=== PATIENT | female | born 1960 | race Caucasian/White ===

== ENCOUNTER → 2016-08-28 | Outpatient (CLI) | payer MEDICARE, OTHER ==
--- NOTE | 2016-08-28 15:53 | XR ---
EXAMINATION TYPE: XR lumbosacral spine min 4V DATE OF EXAM: 08/28/2016 3:45 PM COMPARISON: NONE HISTORY: Tarsalgia TECHNIQUE: 5 view lumbar spine FINDINGS: Mild scoliosis is present. Facet degenerative changes in the lower lumbar spine. Disc heigh ts are preserved. Vertebral body heights are preserved. Some spondylosis is present. IMPRESSION: 1. Mild degenerative changes of the lumbar spine
--- NOTE | 2016-08-28 21:48 | US ---
EXAMINATION TYPE: US venous doppler duplex LE BI DATE OF EXAM: 08/28/2016 4:17 PM COMPARISON: NONE CLINICAL HISTORY: 55-year-old female R25.2 Leg cramping. Bilateral leg cramping, pain, no hx of bloo d clots or on blood thinners SIDE PERFORMED: Bilateral TECHNIQUE: The lower extremity deep venous system is examined utilizing real time linear array sonog iftikhar with graded compression, doppler sonography and color-flow sonography. FINDINGS: VESSELS IMAGED: External Iliac Vein (EIV) Common Femoral Vein Deep Femoral Vein Greater Saphenous Vein * Femoral Vein Popliteal Vein Small Saphenous Vein * Proximal Calf Veins (* superficial vessels) Right Leg: Appears negative for DVT Left Leg: Appears negative for DVT IMPRESSION: No evidence of DVT within the bilateral lower extremities imaged from the groin to the upper calves.
--- NOTE | 2016-08-29 08:29 | MM ---
Reason for exam: follow-up at short interval from prior study. History: Patient is postmenopausal. Family history of breast cancer in mother at age 72. Physical Findings: Nurse did not find any significant physical abnormalities on exam. MG 3D Diag Mammo W/Cad RT CC and MLO view(s) were taken of the right breast. There are scattered fibroglandular densities. No suspicious calcifications are seen. Stable intramuscular lymph node. Density not seen. These results were verbally communicated with the patient and result sheet given to the patient on 08/28/16. ASSESSMENT: Benign, BI-RAD 2 RECOMMENDATION: Routine screening mammogram of both breasts in 6 months. Back on schedule.
== END | disposition home or self-care (01) ==
LOC: RADMAMWWP 13:37
PROVIDERS: ATTEND Family Medicine
DX: R92.8 Other abnormal and inconclusive findings on diagnostic imaging of breast (principal); M47.816 Spondylosis without myelopathy or radiculopathy, lumbar region; R25.2 Cramp and spasm
CPT/HCPCS: 72110; 93970; G0206; G0279

== ENCOUNTER 2016-10-07 17:01 | Emergency (ER) | payer MEDICARE, OTHER ==
--- NOTE | 2016-10-07 17:42 | ED ---
Skin/Abscess/FB HPI - General Chief complaint: Skin/Abscess/Foreign Body Stated complaint: Swollen leg, poss bit by insect Time Seen by Provider: 10/07/16 17:17 Source: patient, RN notes reviewed Mode of arrival: wheelchair - History of Present Illness Initial comments: 56-year-old female presents to the emergency department chief complaint of swelling and redness to the right ankle. Patient states that she recently returned from a train ride to [place]. Patient states that she noticed some swelling and redness to the right ankle. Patient states it is tender to touch. Patient states she was concerned due to the symptoms so she thought that she should be seen. Patient states her spell nausea vomiting. Patient denies any fever or chills. Patient states she has not had any history of symptoms like this in the past. Patient denies any other concerns at this time. Patient denies any recent fever, chills, shortness of breath, chest pain, back pain, abdominal pain, nausea vomiting, numbness or tingling, dysuria or hematuria, constipation or diarrhea, headaches or visual changes, or any other current symptoms. - Related Data Home Medications Medication Instructions Recorded Confirmed Atenolol [Tenormin] 25 mg PO BID 03/01/15 03/03/15 Levothyroxine Sodium [Synthroid] 100 mcg PO QAM 03/01/15 03/01/15 Omeprazole [PriLOSEC] 20 mg PO AC-BID 03/01/15 03/01/15 metFORMIN HCL [Glucophage] 1,000 mg PO BID 03/01/15 03/01/15 Cyclobenzaprine [Flexeril] 5 mg PO TID PRN 10/07/16 10/07/16 Dapagliflozin Propanediol [Farxiga] 5 mg PO DAILY 10/07/16 10/07/16 glipiZIDE XL [Glucotrol Xl] 5 mg PO DAILY 10/07/16 10/07/16 traZODone HCL 150 mg PO HS 10/07/16 10/07/16 Previous Rx's Medication Instructions Recorded Cephalexin [Keflex] 500 mg PO Q6HR #40 cap 10/07/16 Allergies Allergy/AdvReac Type Severity Reaction Status Date / Time No Known Allergies Allergy Verified 10/07/16 17:43 Review of Systems ROS Statement: Those systems with pertinent positive or pertinent negative responses have been documented in the HPI. ROS Other: All systems not noted in ROS Statement are negative. Past Medical History Past Medical History: Diabetes Mellitus, GERD/Reflux, Hyperlipidemia, Hypertension Additional Past Medical History / Comment(s): HIATAL HERNIA,UMBILICAL HERNIA History of Any Multi-Drug Resistant Organisms: None Reported Past Surgical History: Cholecystectomy, Tubal Ligation Additional Past Surgical History / Comment(s): EGD,BLADDER SUSPENSION Past Anesthesia/Blood Transfusion Reactions: No Reported Reaction Smoking Status: Never smoker Past Alcohol Use History: Occasional Past Drug Use History: None Reported - Past Family History Mother Family Medical History: Cancer, Deep Vein Thrombosis (DVT) Additional Family Medical History / Comment(s): BREAST CA Father Family Medical History: Myocardial Infarction ([place]) General Exam - General Exam Comments Initial Comments: General: The patient is awake and alert, in no distress, and does not appear acutely ill. Neck: The neck is supple, there is no tenderness. Cardiovascular: There is a regular rate and rhythm. No murmur, rub or gallop is appreciated. Respiratory: Lungs are clear to auscultation, respirations are non-labored, breath sounds are equal. No wheezes, stridor, rales, or rhonchi. Musculoskeletal: Sensation intact with 2+ pulses throughout the right lower side. Full range of motion of right ankle and right knee. Patient does appear to have erythema over the medial malleolus. There is no calf tenderness. Full range motion of right knee with no bony tenderness noted. Neurological: CN II-XII intact, There are no obvious motor or sensory deficits. Coordination appears grossly intact. Speech is normal. Skin: Skin is warm and dry and no rashes or lesions are noted. Psychiatric: Normal mood and affect. Course Vital Signs 10/07/16 17:18 Temperature 97.4 F L Pulse Rate 103 H Respiratory 17 Rate Blood Pressure 145/88 O2 Sat by Pulse 96 Oximetry Medical Decision Making - Medical Decision Making 56-year-old female presents emergency Department chief complaint of right ankle pain redness and swelling. At this time patient's symptoms are consistent with a possible cellulitis. The family rule out ankle fracture as well as DVT. This time we will start the patient on Keflex for home. We discussed elevating the leg. Discussed return parameters and follow-up. We discussed outpatient family's questions. They state Robert they're in agreement with plan. They will be discharged. - Radiology Data Radiology results: report reviewed, image reviewed Disposition Clinical Impression: Cellulitis of right ankle Disposition: HOME SELF-CARE Condition: Stable Instructions: Cellulitis (ED) Additional Instructions: Please use medication as discussed. Please follow up with family doctor if symptoms have not improved over the next two days. Please return to the emergency room if your symptoms increase or worsen or for any other concerns. Prescriptions: Cephalexin [Keflex] 500 mg PO Q6HR #40 cap Referrals: Juan Sol MD [Primary Care Provider] - 1-2 days Time of Disposition: 18:35
--- NOTE | 2016-10-07 17:46 | XR ---
EXAMINATION TYPE: XR ankle complete RT DATE OF EXAM: 10/07/2016 COMPARISON: NONE HISTORY: Pain and redness TECHNIQUE: 3 views FINDINGS: There is soft tissue swelling around the ankle joint. There are large plantar and Achilles calcaneal spurs. I see no fracture nor dislocation. IMPRESSION: Calcaneal spurring. No fracture. Soft tissue swelling.
--- NOTE | 2016-10-07 18:24 | US ---
EXAMINATION TYPE: US venous doppler duplex LE RT DATE OF EXAM: 10/07/2016 6:07 PM COMPARISON: US 2017 CLINICAL HISTORY: Pain. EC patient with pain, redness and swelling right foot after 5 [address] SIDE PERFORMED: Right TECHNIQUE: The lower extremity deep venous system is examined utilizing real time linear array sonog iftikhar with graded compression, doppler sonography and color-flow sonography. VESSELS IMAGED: Common Femoral Vein Deep Femoral Vein Greater Saphenous Vein * Femoral Vein Popliteal Vein Small Saphenous Vein * Proximal Calf Veins (* superficial vessels) Right Leg: Negative for DVT; edema channels are noted medial right ankle at area of swelling, pain a nd redness. IMPRESSION: No evidence of deep venous thrombosis. Soft tissue edema is noted.
[2016-10-07] MEDS ORDERED: ceFAZolin 1,000 MG VIAL IM STA (18:38)
[2016-10-07 18:53] VITALS: BP 168/82; PULSE 92; RESP 18; TEMP 97.7
== END 2016-10-07 19:06 | disposition home or self-care (01) ==
LOC: EC 17:01
DX: L03.115 Cellulitis of right lower limb (principal); R60.0 Localized edema; R11.2 Nausea with vomiting, unspecified; I10 Essential (primary) hypertension; E11.9 Type 2 diabetes mellitus without complications; K21.9 Gastro-esophageal reflux disease without esophagitis; Z79.84 Long term (current) use of oral hypoglycemic drugs; Z79.899 Other long term (current) drug therapy
CPT/HCPCS: 99284; 96372; 73610; 93971; J0690

== ENCOUNTER 2017-05-14 13:16 | Emergency (ER) | payer MEDICARE, OTHER ==
[2017-05-14 13:21] VITALS: BP 137/80; PULSE 77; RESP 20; TEMP 98.1
--- NOTE | 2017-05-14 13:51 | ED ---
General Adult HPI - General Chief complaint: Back Pain/Injury Stated complaint: back pain Time Seen by Provider: 05/14/17 13:46 Source: patient, RN notes reviewed Mode of arrival: ambulatory Limitations: no limitations - History of Present Illness Initial comments: 56-year-old female presents to the emergency department with a chief complaint of right-sided sciatica type pain. She states she has a history of sciatica. She states it flared up about a week ago. Her right buttock and will shoot down her right. Certain movement seems to make it worse. She denies a loss by bladder functioning saddle anesthesia. She states she also has a history of these is that she has not. She states she's had a lot of itching. denies Discharge. She denies any fever chills with this. She denies any changes in urination. Patient was concerned due to the flareup of sciatica as well as she thought that her increased infection should be assessed. Patient states is not currently having any other symptoms at this time.Patient denies any recent fever , chills, shortness of breath, chest pain, back pain, abdominal pain, nausea vomiting, numbness or tingling, dysuria or hematuria, constipation or diarrhea, headaches or visual changes, or any other current symptoms. - Related Data Home Medications Medication Instructions Recorded Confirmed Atenolol [Tenormin] 25 mg PO BID 03/01/15 10/07/16 Levothyroxine Sodium [Synthroid] 100 mcg PO QAM 03/01/15 10/07/16 Omeprazole [PriLOSEC] 20 mg PO DAILY 03/01/15 10/07/16 metFORMIN HCL [Glucophage] 1,000 mg PO BID 03/01/15 10/07/16 Cyclobenzaprine [Flexeril] 5 mg PO TID PRN 10/07/16 10/07/16 Dapagliflozin Propanediol [Farxiga] 5 mg PO DAILY 10/07/16 10/07/16 glipiZIDE XL [Glucotrol Xl] 5 mg PO DAILY 10/07/16 10/07/16 traZODone HCL 150 mg PO HS 10/07/16 10/07/16 Previous Rx's Medication Instructions Recorded Cephalexin [Keflex] 500 mg PO Q6HR #40 cap 10/07/16 Fluconazole [Diflucan] 150 mg PO ONCE #2 tab 05/14/17 predniSONE 50 mg PO DAILY #5 tab 05/14/17 Allergies Allergy/AdvReac Type Severity Reaction Status Date / Time No Known Allergies Allergy Verified 05/14/17 13:21 Review of Systems ROS Statement: Those systems with pertinent positive or pertinent negative responses have been documented in the HPI. ROS Other: All systems not noted in ROS Statement are negative. Past Medical History Past Medical History: Diabetes Mellitus, GERD/Reflux, Hyperlipidemia, Hypertension Additional Past Medical History / Comment(s): HIATAL HERNIA,UMBILICAL HERNIA History of Any Multi-Drug Resistant Organisms: None Reported Past Surgical History: Cholecystectomy, Tubal Ligation Additional Past Surgical History / Comment(s): EGD,BLADDER SUSPENSION Past Anesthesia/Blood Transfusion Reactions: No Reported Reaction Past Psychological History: No Psychological Hx Reported Smoking Status: Never smoker Past Alcohol Use History: Occasional Past Drug Use History: None Reported - Past Family History Mother Family Medical History: Cancer, Deep Vein Thrombosis (DVT) Additional Family Medical History / Comment(s): BREAST CA Father Family Medical History: Myocardial Infarction ([place]) General Exam Limitations: no limitations General appearance: alert, in no apparent distress ENT exam: Present: normal exam, mucous membranes moist Neck exam: Present: normal inspection. Absent: tenderness, meningismus, lymphadenopathy Respiratory exam: Present: normal lung sounds bilaterally. Absent: respiratory distress, wheezes, rales, rhonchi, stridor Cardiovascular Exam: Present: regular rate, normal rhythm, normal heart sounds. Absent: systolic murmur, diastolic murmur, rubs, gallop, clicks External exam: Present: erythema, other (no discharge noted) Back exam: Present: normal inspection, full ROM, paraspinal tenderness ( right sided), other (Positive straight leg raise to the right). Absent: tenderness, rash noted Neurological exam: Present: alert, oriented X3 Psychiatric exam: Present: normal affect, normal mood Skin exam: Present: warm, dry, intact, normal color. Absent: rash Course Vital Signs 05/14/17 13:19 Temperature 98.1 F Pulse Rate 77 Respiratory 20 Rate Blood Pressure 137/80 O2 Sat by Pulse 96 Oximetry Medical Decision Making - Medical Decision Making 56 shows female presents to emergency department with a chief complaint of what appears to be a sciatica as well as concern for yeast infection. This time there was some erythema around the area. Patient's urinalysis is otherwise benign. We will send for urine culture. We'll give her a dose of fluconazole for today 36 hours later as well as we we'll start her on steroids for her back pain. We did discuss the importance of keeping it tight glucose control with steroids we did discuss return parameters and follow-up and all questions. Patient stated that she understood and she is here this plan. She'll be discharged. - Lab Data Lab Results 05/14/17 Range/Units 13:52 Urine Color Yellow Urine Appearance Clear (Clear) Urine pH 5.0 (5.0-8.0) Ur Specific Micro 1.026 (1.001-1.035) Urine Protein Negative (Negative) Urine Glucose (UA) 4+ H (Negative) Urine Ketones Negative (Negative) Urine Blood Negative (Negative) Urine Nitrite Negative (Negative) Urine Bilirubin Negative (Negative) Urine Urobilinogen <2.0 (<2.0) mg/dL Ur Leukocyte Esterase Small H (Negative) Urine RBC 1 (0-5) /hpf Urine WBC 1 (0-5) /hpf Ur Squamous Epith Cells 1 (0-4) /hpf Urine Mucus Rare H (None) /hpf - Radiology Data Radiology results: report reviewed, image reviewed Disposition Clinical Impression: Candidiasis of vulva and vagina, Right sided sciatica Disposition: HOME SELF-CARE Condition: Stable Instructions: Vulvovaginal Candidiasis (ED), Sciatica (ED) Additional Instructions: Please use medication as discussed. Please follow up with family doctor if symptoms have not improved over the next two days. Please return to the emergency room if your symptoms increase or worsen or for any other concerns. Prescriptions: Fluconazole [Diflucan] 150 mg PO ONCE #2 tab predniSONE 50 mg PO DAILY #5 tab Referrals: Juan Sol MD [Primary Care Provider] - 1-2 days Time of Disposition: 14:47
--- NOTE | 2017-05-14 14:22 | XR ---
EXAMINATION TYPE: XR lumbar spine 2 or 3V DATE OF EXAM: 05/14/2017 CLINICAL HISTORY: pain TECHNIQUE: Three views of the lumbar spine are submitted. COMPARISON: None. FINDINGS: There are 5 lumbar type vertebral bodies identified. The lumbar spine shows satisfactory alignment w ithout evidence of acute fracture or dislocation. Vertebral body heights are within normal limits. Moderate multilevel disc space narrowing and spondylosis. Mild curvature seen convex to the left. Th e overlying soft tissue appears unremarkable. IMPRESSION: No acute fracture or dislocation is seen in the lumbar spine. ICD 10 NO FRACTURE, INITIAL EVALUATION
[2017-05-14 14:43] LABS: Appearance,Urine Clear (Clear); Bilirubin,Urine Negative (Negative); Blood,Urine Negative (Negative); Color,Urine Yellow; Glucose,Urine (UA) 4+ (Negative); Ketones,Urine Negative (Negative); Leukocyte Esterase,Urine Small (Negative); Mucus,Urine Rare /hpf; Nitrite,Urine Negative (Negative); Protein,Urine Negative (Negative); RBC,Urine 1 /hpf (0-5); Specific Gravity,Urine 1.026 (1.001-1.035); Squamous Epithelial Cell,Urine 1 /hpf (0-4); Urobilinogen,Urine <2.0 mg/dL (<2.0); WBC,Urine 1 /hpf (0-5)
== END 2017-05-14 14:55 | disposition home or self-care (01) ==
LOC: EC 13:16
DX: M54.31 Sciatica, right side (principal); B37.3 Candidiasis of vulva and vagina; K21.9 Gastro-esophageal reflux disease without esophagitis; E78.5 Hyperlipidemia, unspecified; I10 Essential (primary) hypertension; E11.9 Type 2 diabetes mellitus without complications; Z79.84 Long term (current) use of oral hypoglycemic drugs; Z79.899 Other long term (current) drug therapy
CPT/HCPCS: 72100; 81001; 99283

== ENCOUNTER → 2018-05-20 | Outpatient (CLI) | payer MEDICARE, OTHER ==
--- NOTE | 2018-05-23 13:15 | MM ---
Reason for exam: screening (asymptomatic). Last mammogram was performed 1 year and 1 month ago. History: Patient is postmenopausal. Family history of breast cancer in mother at age 72. MG 3D Screening Mammo W/Cad Bilateral CC and MLO view(s) were taken. Prior study comparison: April 21, 2017, bilateral MG 3d screening mammo w/cad. August 28, 2016, right breast MG 3d diag mammo w/cad RT. There are scattered fibroglandular densities. There is chronic nodularity in the right breast. No significant changes when compared with prior studies. ASSESSMENT: Negative, BI-RAD 1 RECOMMENDATION: Routine screening mammogram of both breasts in 1 year.
== END | disposition home or self-care (01) ==
LOC: RADMAMWWP 10:38
PROVIDERS: ATTEND Family Medicine
DX: Z12.31 Encounter for screening mammogram for malignant neoplasm of breast (principal)
CPT/HCPCS: 77063; 77067

== ENCOUNTER → 2019-07-16 | Outpatient (CLI) | payer MEDICARE, OTHER ==
--- NOTE | 2019-07-19 09:51 | MM ---
Reason for exam: screening (asymptomatic). Last mammogram was performed 1 year and 2 months ago. History: Patient is postmenopausal. Family history of breast cancer in mother at age 72. Physical Findings: A clinical breast exam by your physician is recommended on an annual basis and results should be correlated with mammographic findings. MG 3D Screening Mammo W/Cad Bilateral CC and MLO view(s) were taken. Prior study comparison: May 20, 2018, bilateral MG 3d screening mammo w/cad. April 21, 2017, bilateral MG 3d screening mammo w/cad. There are scattered fibroglandular densities. No significant changes when compared with prior studies. ASSESSMENT: Benign, BI-RAD 2 RECOMMENDATION: Routine screening mammogram of both breasts in 1 year.
== END | disposition home or self-care (01) ==
LOC: RADMAMWWP 15:12
PROVIDERS: ATTEND Obstetrics & Gynecology
DX: Z12.31 Encounter for screening mammogram for malignant neoplasm of breast (principal)
CPT/HCPCS: 77063; 77067

== ENCOUNTER → 2020-09-01 | Outpatient (CLI) | payer MEDICARE, OTHER ==
--- NOTE | 2020-09-04 11:45 | MM ---
Reason for exam: screening (asymptomatic). Last mammogram was performed 1 year and 2 months ago. History: Patient is postmenopausal. Family history of breast cancer in mother at age 72. Physical Findings: A clinical breast exam by your physician is recommended on an annual basis and results should be correlated with mammographic findings. MG 3D Screening Mammo W/Cad Bilateral CC and MLO view(s) were taken. XCCL view(s) were taken of the right breast. Prior study comparison: July 16, 2019, bilateral MG 3d screening mammo w/cad. May 20, 2018, bilateral MG 3d screening mammo w/cad. There are scattered fibroglandular densities. There are benign appearing round calcifications bilaterally. There is chronic nodularity bilaterally. There is no discrete abnormality. ASSESSMENT: Benign, BI-RAD 2 RECOMMENDATION: Routine screening mammogram of both breasts in 1 year.
== END | disposition home or self-care (01) ==
LOC: RADMAMWWP 13:10
PROVIDERS: ATTEND Family Medicine
DX: Z12.31 Encounter for screening mammogram for malignant neoplasm of breast (principal); Z80.3 Family history of malignant neoplasm of breast; Z78.0 Asymptomatic menopausal state
CPT/HCPCS: 77063; 77067

== ENCOUNTER 2021-07-20 16:33 | Observation (INO) | payer MEDICARE, OTHER ==
[2021-07-20 18:16] LABS: Basophils % (A) 1 %; Eosinophils # (A) 0.2 k/uL (0-0.7); Eosinophils % (A) 3 %; HCT 42.5 % (34.0-46.0); HGB 14.4 gm/dL (11.4-16.0); Lymphocytes # (A) 2.2 k/uL (1.0-4.8); Lymphocytes % (A) 30 %; MCH 29.2 pg (25.0-35.0); MCHC 33.9 g/dL (31.0-37.0); MCV 86.1 fL (80.0-100.0); Mean Platelet Volume 7.8; Monocytes # (A) 0.3 k/uL (0-1.0); Monocytes % (A) 4 %; Neutrophils # (A) 4.4 k/uL (1.3-7.7); Neutrophils % (A) 60 %; Platelet Count 247 k/uL (150-450); RBC 4.94 m/uL (3.80-5.40); RDW 13.4 % (11.5-15.5); WBC 7.4 k/uL (3.8-10.6)
[2021-07-20 18:24] LABS: African American GFR (CKD) >90 (>60 ml/min/1.73 sqM); Anion Gap 9 mmol/L; Blood Urea Nitrogen 17 mg/dL (7-17); Carbon Dioxide 23 mmol/L (22-30); Chloride 104 mmol/L (98-107); Glucose 254 mg/dL (74-99); Potassium 4.1 mmol/L (3.5-5.1); Sodium 136 mmol/L (137-145)
[2021-07-20 18:25] LABS: ALT 36 U/L (4-34); AST 33 U/L (14-36); Alkaline Phosphatase 82 U/L (38-126); Calcium 9.2 mg/dL (8.4-10.2); Lipase 300 U/L (23-300); Non-African American GFR(CKD) >90 (>60 ml/min/1.73 sqM); Partial Thromboplastin Time 22.6 sec (22.0-30.0); Prothrombin Time 10.4 sec (9.0-12.0); Total Bilirubin 0.5 mg/dL (0.2-1.3); Total Protein 6.9 g/dL (6.3-8.2)
--- NOTE | 2021-07-20 18:38 | XR ---
EXAMINATION TYPE: XR chest 2V DATE OF EXAM: 07/20/2021 COMPARISON: NONE HISTORY: Chest pain TECHNIQUE: 2 views FINDINGS: There is no heart failure nor confluent pneumonic infiltrate. Costophrenic angles are clear . There are chest leads. The bony thorax is intact. IMPRESSION: No active cardiopulmonary disease. Normal heart.
--- NOTE | 2021-07-20 18:53 | ED ---
General Adult HPI - General Chief complaint: Dizziness Stated complaint: Chest pains Time Seen by Provider: 07/20/21 17:37 Source: patient, RN notes reviewed, old records reviewed Mode of arrival: wheelchair Limitations: no limitations - History of Present Illness Initial comments: 60-year-old female presenting with chief complaint of dizziness, chest d iscomfort, and bilateral upper shoulder pain. Symptoms have been present for approximately one week. She has history of hypertension and diabetes. No previous history of coronary artery disease or myocardial infarction. She denies focal numbness or weakness. She states she has been unsteady on her feet over the past one week as well. - Related Data Home Medications Medication Instructions Recorded Confirmed Omeprazole [PriLOSEC] 20 mg PO DAILY 03/01/15 07/20/21 ALPRAZolam [Xanax] 0.25 mg PO DAILY PRN 07/20/21 07/20/21 Empagliflozin [Jardiance] 10 mg PO DAILY 07/20/21 07/20/21 Ergocalciferol [Vitamin D2 (1250 1,250 mcg PO FR 07/20/21 07/20/21 Mcg = 19909 Iu)] Fenofibrate,Micronized 134 mg PO DAILY 07/20/21 07/20/21 [Fenofibrate] Levothyroxine Sodium 112 mcg PO DAILY 07/20/21 07/20/21 Liraglutide [Victoza 2-Gen] 1.2 mg SQ DAILY 07/20/21 07/20/21 Metoprolol Succinate (ER) [Toprol 100 mg PO DAILY 07/20/21 07/20/21 Xl] Rosuvastatin Calcium [Crestor] 40 mg PO DAILY 07/20/21 07/20/21 Venlafaxine HCl [Effexor XR] 75 mg PO DAILY 07/20/21 07/20/21 glipiZIDE XL [Glucotrol Xl] 10 mg PO DAILY 07/20/21 07/20/21 sitaGLIPtin [Januvia] 100 mg PO DAILY 07/20/21 07/20/21 traZODone HCL [Desyrel] 100 mg PO HS 07/20/21 07/20/21 Allergies Allergy/AdvReac Type Severity Reaction Status Date / Time lisinopril AdvReac Cough Verified 07/20/21 18:32 Review of Systems ROS Statement: Those systems with pertinent positive or pertinent negative responses have been documented in the HPI. ROS Other: All systems not noted in ROS Statement are negative. Past Medical History Past Medical History: Diabetes Mellitus, GERD/Reflux, Hyperlipidemia, Hypertension Additional Past Medical History / Comment(s): HIATAL HERNIA,UMBILICAL HERNIA History of Any Multi-Drug Resistant Organisms: None Reported Past Surgical History: Cholecystectomy, Tubal Ligation Additional Past Surgical History / Comment(s): EGD,BLADDER SUSPENSION Past Anesthesia/Blood Transfusion Reactions: No Reported Reaction Past Psychological History: No Psychological Hx Reported Smoking Status: Never smoker Past Alcohol Use History: Occasional Past Drug Use History: None Reported - Past Family History Mother Family Medical History: Cancer, Deep Vein Thrombosis (DVT) Additional Family Medical History / Comment(s): BREAST CA Father Family Medical History: Myocardial Infarction ([place]) General Exam Limitations: no limitations General appearance: alert, in no apparent distress Head exam: Present: atraumatic, normocephalic Eye exam: Present: normal appearance, PERRL ENT exam: Present: normal exam Neck exam: Present: normal inspection. Absent: tenderness, meningismus Respiratory exam: Present: normal lung sounds bilaterally. Absent: respiratory distress, wheezes Cardiovascular Exam: Present: regular rate, normal rhythm GI/Abdominal exam: Present: soft. Absent: distended, tenderness, guarding Extremities exam: Present: normal inspection, normal capillary refill. Absent: pedal edema, calf tenderness Neurological exam: Present: alert, oriented X3, CN II-XII intact. Absent: motor sensory deficit Psychiatric exam: Present: normal affect, normal mood Skin exam: Present: warm, dry, intact. Absent: cyanosis, diaphoretic Course Vital Signs 07/20/21 07/20/21 16:37 17:43 Temperature 97.8 F 98.1 F Pulse Rate 85 77 Respiratory 18 18 Rate Blood Pressure 176/93 187/98 O2 Sat by Pulse 96 96 Oximetry EKG Findings - EKG Comments: EKG Findings:: Initial EKG obtained at 1707 sinus rhythm with a rate of 79, [place] interval 170, QRS duration 113, QTC 4:30, there is [place] depression and Q waves in the inferior leads as well as the lateral precordial leads. Repeat EKG obtained at 1752 is unchanged. Rate of 74, NY interval 164, QRS duration 110, QTC 427. Medical Decision Making - Medical Decision Making 60-year-old female presenting with multiple complaints, chest pain which radiates to her bilateral upper shoulders. She is also had some dizziness and gait instability over the past one week. Patient has EKG showing sinus rhythm with nonspecific ST segment changes Patient has a normal CBC, normal CMP, did perform CT imaging of the brain to rule out CVA is negative. Chest x-ray negative for acute cardiopulmonary disease. I discussed case with Dr. Zafar who will admit for further evaluation and treatment. Cardiology will be placed on consult. - Lab Data Result diagrams: 07/20/21 18:09 07/20/21 18:09 Lab Results 07/20/21 07/20/21 07/20/21 Range/Units 18:09 18:09 18:09 WBC 7.4 (3.8-10.6) k/uL RBC 4.94 (3.80-5.40) m/uL Hgb 14.4 (11.4-16.0) gm/dL Hct 42.5 (34.0-46.0) % MCV 86.1 (80.0-100.0) fL MCH 29.2 (25.0-35.0) pg MCHC 33.9 (31.0-37.0) g/dL RDW 13.4 (11.5-15.5) % Plt Count 247 (150-450) k/uL MPV 7.8 Neutrophils % 60 % Lymphocytes % 30 % Monocytes % 4 % Eosinophils % 3 % Basophils % 1 % Neutrophils # 4.4 (1.3-7.7) k/uL Lymphocytes # 2.2 (1.0-4.8) k/uL Monocytes # 0.3 (0-1.0) k/uL Eosinophils # 0.2 (0-0.7) k/uL Basophils # 0.0 (0-0.2) k/uL PT 10.4 (9.0-12.0) sec INR 1.0 (<1.2) APTT 22.6 (22.0-30.0) sec Sodium 136 L (137-145) mmol/L Potassium 4.1 (3.5-5.1) mmol/L Chloride 104 (98-107) mmol/L Carbon Dioxide 23 (22-30) mmol/L Anion Gap 9 mmol/L BUN 17 (7-17) mg/dL Creatinine 0.62 (0.52-1.04) mg/dL Est GFR (CKD-EPI)AfAm >90 (>60 ml/min/1.73 sqM) Est GFR (CKD-EPI)NonAf >90 (>60 ml/min/1.73 sqM) Glucose 254 H (74-99) mg/dL Calcium 9.2 (8.4-10.2) mg/dL Magnesium 2.0 (1.6-2.3) mg/dL Total Bilirubin 0.5 (0.2-1.3) mg/dL AST 33 (14-36) U/L ALT 36 H (4-34) U/L Alkaline Phosphatase 82 (38-126) U/L Troponin I (0.000-0.034) ng/mL NT-Pro-B Natriuret Pep pg/mL Total Protein 6.9 (6.3-8.2) g/dL Albumin 4.0 (3.5-5.0) g/dL Lipase 300 (23-300) U/L 07/20/21 07/20/21 Range/Units 18:09 18:09 WBC (3.8-10.6) k/uL RBC (3.80-5.40) m/uL Hgb (11.4-16.0) gm/dL Hct (34.0-46.0) % MCV (80.0-100.0) fL MCH (25.0-35.0) pg MCHC (31.0-37.0) g/dL RDW (11.5-15.5) % Plt Count (150-450) k/uL MPV Neutrophils % % Lymphocytes % % Monocytes % % Eosinophils % % Basophils % % Neutrophils # (1.3-7.7) k/uL Lymphocytes # (1.0-4.8) k/uL Monocytes # (0-1.0) k/uL Eosinophils # (0-0.7) k/uL Basophils # (0-0.2) k/uL PT (9.0-12.0) sec INR (<1.2) APTT (22.0-30.0) sec Sodium (137-145) mmol/L Potassium (3.5-5.1) mmol/L Chloride (98-107) mmol/L Carbon Dioxide (22-30) mmol/L Anion Gap mmol/L BUN (7-17) mg/dL Creatinine (0.52-1.04) mg/dL Est GFR (CKD-EPI)AfAm (>60 ml/min/1.73 sqM) Est GFR (CKD-EPI)NonAf (>60 ml/min/1.73 sqM) Glucose (74-99) mg/dL Calcium (8.4-10.2) mg/dL Magnesium (1.6-2.3) mg/dL Total Bilirubin (0.2-1.3) mg/dL AST (14-36) U/L ALT (4-34) U/L Alkaline Phosphatase (38-126) U/L Troponin I <0.012 (0.000-0.034) ng/mL NT-Pro-B Natriuret Pep 44 pg/mL Total Protein (6.3-8.2) g/dL Albumin (3.5-5.0) g/dL Lipase (23-300) U/L Disposition Clinical Impression: Dehydration, Chest pain Disposition: ADMITTED IP TO THIS [facility] Condition: Stable Is patient prescribed a controlled substance at d/c from ED?: No Referrals: Damien Liu MD [Primary Care Provider] - 1-2 days Decision to Admit Reason: Admit from EC Decision Date: 07/20/21 Decision Time: 19:37
--- NOTE | 2021-07-20 19:19 | CT ---
EXAMINATION TYPE: CT brain wo con DATE OF EXAM: 07/20/2021 COMPARISON: None HISTORY: Headache and dizziness. CT DLP: 1188.4 mGycm Automated exposure control for dose reduction was used. Images of the brain obtained without contrast. Ventricles have normal size. There is no mass effect or midline shift. There is no sign of intracrani al hemorrhage. Calvarium is intact. Skull base is intact. There is normal aeration of the mastoid sin uses. Sella turcica appears normal. IMPRESSION: Negative unenhanced head CT scan.
[2021-07-20] MEDS ORDERED: NALOXONE 0.4 MG/ML 1 ML VIAL IV PRN (19:31)
[2021-07-20] MEDS ORDERED: ACETAMINOPHEN TAB 325 MG TAB PO PRN (19:31)
[2021-07-20] MEDS ORDERED: ALPRAZolam 0.25 MG TAB PO PRN (19:33)
[2021-07-20] MEDS: SODIUM CHLORIDE 0.9% 1,000 ML IV SCH (20:06)
[2021-07-20 21:22] LABS: Glucose,Whole Blood 256 mg/dL (75-99)
[2021-07-20] MEDS ORDERED: traZODone HCL 100 MG TAB PO SCH (23:15)
--- NOTE | 2021-07-20 23:35 | P.HPIM ---
History of Present Illness H&P Date: 07/20/21 Chief Complaint: chest pain 60 year old female with DM , hypertension , hyperlipidemia patient presented with 1 week history of occasional chest pain episodes , she describes it as short lived (resolves on its own within seconds) heavy pain retrosternal not precipitated by activity , associated with palpitations, nausea but not vomiting, no sweating, no SOB . radiates to both shoulders and back. she denies any history of CAD, denies smoking, drugs, or heavy alcohol use, but admits to a lot of emotional stress. she had a stress test done 3 years ago and was negative. in the ED , Brain ct was negative, (she reported some headache upon presentation that is gone now, and again she reports occasional throbbing headaches not associated with any focal neuro deficits. ) CXR no acute changes trops negative EKG non specific ST changes Review of Systems Pertinent positives as noted in HPI. All other systems were reviewed and are neg ative Past Medical History Past Medical History: Diabetes Mellitus, GERD/Reflux, Hyperlipidemia, Hypertension Additional Past Medical History / Comment(s): HIATAL HERNIA,UMBILICAL HERNIA History of Any Multi-Drug Resistant Organisms: None Reported Past Surgical History: Cholecystectomy, Tubal Ligation Additional Past Surgical History / Comment(s): EGD,BLADDER SUSPENSION Past Anesthesia/Blood Transfusion Reactions: No Reported Reaction Past Psychological History: No Psychological Hx Reported Smoking Status: Never smoker Past Alcohol Use History: Occasional Past Drug Use History: None Reported - Past Family History Mother Family Medical History: Cancer, Deep Vein Thrombosis (DVT), Myocardial Infarction ([place]) Additional Family Medical History / Comment(s): BREAST CA Father Family Medical History: Myocardial Infarction ([place]) Medications and Allergies Home Medications Medication Instructions Recorded Confirmed Type Omeprazole [PriLOSEC] 20 mg PO DAILY 03/01/15 07/20/21 History ALPRAZolam [Xanax] 0.25 mg PO DAILY PRN 07/20/21 07/20/21 History Empagliflozin [Jardiance] 10 mg PO DAILY 07/20/21 07/20/21 History Ergocalciferol [Vitamin D2 (1250 1,250 mcg PO FR 07/20/21 07/20/21 History Mcg = 47953 Iu)] Fenofibrate,Micronized 134 mg PO DAILY 07/20/21 07/20/21 History [Fenofibrate] Levothyroxine Sodium 112 mcg PO DAILY 07/20/21 07/20/21 History Liraglutide [Victoza 2-Gen] 1.2 mg SQ DAILY 07/20/21 07/20/21 History Metoprolol Succinate (ER) [Toprol 100 mg PO DAILY 07/20/21 07/20/21 History Xl] Rosuvastatin Calcium [Crestor] 40 mg PO DAILY 07/20/21 07/20/21 History Venlafaxine HCl [Effexor XR] 75 mg PO DAILY 07/20/21 07/20/21 History glipiZIDE XL [Glucotrol Xl] 10 mg PO DAILY 07/20/21 07/20/21 History sitaGLIPtin [Januvia] 100 mg PO DAILY 07/20/21 07/20/21 History traZODone HCL [Desyrel] 100 mg PO HS 07/20/21 07/20/21 History Allergies Allergy/AdvReac Type Severity Reaction Status Date / Time lisinopril AdvReac Cough Verified 07/20/21 18:32 Physical Exam Vitals: Vital Signs Temp Pulse Pulse Resp BP BP Pulse Ox 07/20/21 20:35 97.5 F L 75 18 159/94 97 07/20/21 20:00 72 18 151/89 98 07/20/21 17:43 98.1 F 77 18 187/98 96 07/20/21 16:37 97.8 F 85 18 176/93 96 Intake and Output 07/20/21 07/20/21 07/21/21 14:59 22:59 06:59 Other: # Voids 1 Weight 77.111 kg Constitutional: No acute distress, conversant, pleasant Eyes: Anicteric sclerae, moist conjunctiva, Pupils equal round reactive to light ENMT: NC/AT Oropharynx clear, no erythema, or exudates Neck: Supple, no masses, or JVD No carotid bruits No thyromegaly Lungs: Clear to auscultation Clear to percussion Normal respiratory effort, no accessory muscle use Cardiovascular: Heart regular in rate and rhythm, No murmurs, gallops, or rubs No peripheral edema Abdominal: Soft Nontender, no guarding, rebound or rigidity Abdomen moving with respiration Normoactive bowel sounds No hepatomegaly, No splenomegaly No palpable mass No abdominal wall hernia noted Skin: Normal temperature, tone, texture, turgor No induration No subcutaneous nodules No rash, lesions No ulcers Extremities: No digital cyanosis No clubbing Pedal pulses intact and symmetrical Radial pulses intact and symmetrical No calf tenderness Psychiatric: Alert and oriented to person, place and time Appropriate affect fair judgement Neuro Muscles Strength 4/5 in bilateral lower extremities, 4/5 in bilateral upper extremities except for limited over the proximal muscle group of upper extremities due to right shoulder pain Sensation to light touch grossly present throughout Cranial nerves II-XII grossly intact No focal sensory deficits Lymphatics: no palpable cervical or supraclavicular , or inguinal lymph nodes Results CBC & Chem 7: 07/20/21 18:09 07/20/21 18:09 Labs: Abnormal Lab Results - Last 24 Hours (Table) 07/20/21 07/20/21 Range/Units 18:09 21:20 Sodium 136 L (137-145) mmol/L Glucose 254 H (74-99) mg/dL POC Glucose (mg/dL) 256 H (75-99) mg/dL ALT 36 H (4-34) U/L Thrombosis Risk Factor Assmnt - Choose All That Apply Each Factor Represents 1 point: Age 41-60 years, Obesity (BMI >25) Thrombosis Risk Factor Assessment Total Risk Factor Score: 2 Thrombosis Risk Factor Assessment Level: Low Risk Assessment and Plan Assessment: Atypical chest pain rule out ACS Cardiac monitoring Trend troponins Cardiology consult Pain control IV fluid hydration normal saline Aspirin and statin Monitor vital signs Headaches Symptomatically control Brain CT negative Chronic conditions Diabetes mellitus insulin sliding scale Hypertension continue home meds Hyperlipidemia continue statin Full code DVT prophylaxis heparin subcu 3 times a day Anticipated length of stay less than 2 midnights
[2021-07-21] MEDS: HEPARIN SODIUM,PORCINE/PF 5,000 UNIT/0.5 ML SYRINGE SQ SCH ×2 (00:11→08:04)
[2021-07-21 04:20] VITALS: RESP 16
[2021-07-21] MEDS ORDERED: LEVOTHYROXINE 112 MCG TAB PO SCH (06:30)
[2021-07-21 07:51] LABS: Glucose,Whole Blood 281 mg/dL (75-99)
[2021-07-21] MEDS: INSULIN ASPART (NovoLOG) 100 UNIT/ML VIAL SQ SCH ×3 (08:03→14:34)
[2021-07-21] MEDS ORDERED: METOPROLOL SUCCINATE (ER) 100 MG TAB.ER.24H PO SCH (09:00)
[2021-07-21] MEDS ORDERED: ATORVASTATIN 80 MG TAB PO SCH (09:00)
[2021-07-21] MEDS ORDERED: VENLAFAXINE HCL ER 75 MG CAP PO SCH (09:00)
[2021-07-21] MEDS ORDERED: glipiZIDE 5 MG TAB PO SCH (09:00)
[2021-07-21] MEDS ORDERED: LINAGLIPTIN 5 MG TABLET PO SCH (09:00)
[2021-07-21] MEDS ORDERED: PANTOPRAZOLE 40 MG TABLET PO SCH (09:00)
[2021-07-21] MEDS ORDERED: LIRAGLUTIDE 0.6 MG/0.1 ML SQ SCH (09:00)
--- NOTE | 2021-07-21 11:16 | P.CRDCN ---
History of Present Illness History of present illness: HISTORY OF PRESENTING ILLNESS 60-year-old female with history of hypertension, hyperlipidemia, diabetes mellitus type 2 and family history CHF is on secondary chest pain. She states she has been having a fluttering sensation as well as some left chest and breast chest discomfort. She admits it will worsen if she gets upset however no association with any exertion. No associated diaphoresis or shortness breath. EKG shows normal sinus rhythm with minimal ST elevation inferior lateral leads most consistent with early repolarization versus less likely pericarditis. Troponins normal 2, proBNP no oral at 44. She admits chest pain has completely resolved and has not had any further symptoms. Currently anxious to go home. REVIEW OF SYSTEMS At the time of my exam: CONSTITUTIONAL: Denies fever or chills. CARDIOVASCULAR: +chest pain, no shortness of breath, orthopnea, PND or palpi tations. RESPIRATORY: Denies cough. GASTROINTESTINAL: Denies abdominal pain, diarrhea, constipation, nausea or vomiting. MUSCULOSKELETAL: Denies myalgias. NEUROLOGIC: Denies numbness, tingling or weakness. ENDOCRINE: Denies fatigue, weight change, polydipsia or polyurina. GENITOURINARY: Denies burning, hematuria or urgency with micturation. HEMATOLOGIC: Denies history of anemia or bleeding. PHYSICAL EXAMINATION Vital signs reviewed. CONSTITUTIONAL: No apparent distress. HEENT: Head is normocephalic. Pupils are equal, round. Sclerae anicteric. Mucous membranes of the mouth are moist. No JVD. No carotid bruit. CHEST EXAMINATION: Lungs are clear to auscultation. No chest wall tenderness is noted on palpation or with deep breathing. HEART EXAMINATION: Regular rate and rhythm. S1, S2 heard. No murmurs, gallops or rub. ABDOMEN: Soft, nontender. Positive bowel sounds. EXTREMITIES: 2+ peripheral pulses, no lower extremity edema and no calf tenderness. NEUROLOGIC EXAMINATION: Patient is awake, alert and oriented x3. ASSESSMENT 1. Atypical chest pain 2. Abnormal EKG most consistent with early repolarization 3. Hypertension 4. Hyperlipidemia 5. Diabetes mellitus type 2 PLAN Overall patient's symptoms appear fairly atypical. Symptoms have improved and no evidence of acute coronary syndrome. ST elevations minimally elevated most consistent with early repolarization, does not appear consistent with pericarditis. We will check 2-D echo and if no significant findings patient may be discharged home with outpatient follow-up and possible outpatient stress testing. Past Medical History Past Medical History: Diabetes Mellitus, GERD/Reflux, Hyperlipidemia, Hypertension Additional Past Medical History / Comment(s): HIATAL HERNIA,UMBILICAL HERNIA History of Any Multi-Drug Resistant Organisms: None Reported Past Surgical History: Cholecystectomy, Tubal Ligation Additional Past Surgical History / Comment(s): EGD,BLADDER SUSPENSION Past Anesthesia/Blood Transfusion Reactions: No Reported Reaction Past Psychological History: No Psychological Hx Reported Smoking Status: Never smoker Past Alcohol Use History: Occasional Past Drug Use History: None Reported - Past Family History Mother Family Medical History: Cancer, Deep Vein Thrombosis (DVT), Myocardial Infarction ([place]) Additional Family Medical History / Comment(s): BREAST CA Father Family Medical History: Myocardial Infarction ([place]) Medications and Allergies Home Medications Medication Instructions Recorded Confirmed Type Omeprazole [PriLOSEC] 20 mg PO DAILY 03/01/15 07/20/21 History ALPRAZolam [Xanax] 0.25 mg PO DAILY PRN 07/20/21 07/20/21 History Empagliflozin [Jardiance] 10 mg PO DAILY 07/20/21 07/20/21 History Ergocalciferol [Vitamin D2 (1250 1,250 mcg PO FR 07/20/21 07/20/21 History Mcg = 03132 Iu)] Fenofibrate,Micronized 134 mg PO DAILY 07/20/21 07/20/21 History [Fenofibrate] Levothyroxine Sodium 112 mcg PO DAILY 07/20/21 07/20/21 History Liraglutide [Victoza 2-Gen] 1.2 mg SQ DAILY 07/20/21 07/20/21 History Metoprolol Succinate (ER) [Toprol 100 mg PO DAILY 07/20/21 07/20/21 History Xl] Rosuvastatin Calcium [Crestor] 40 mg PO DAILY 07/20/21 07/20/21 History Venlafaxine HCl [Effexor XR] 75 mg PO DAILY 07/20/21 07/20/21 History glipiZIDE XL [Glucotrol Xl] 10 mg PO DAILY 07/20/21 07/20/21 History sitaGLIPtin [Januvia] 100 mg PO DAILY 07/20/21 07/20/21 History traZODone HCL [Desyrel] 100 mg PO HS 07/20/21 07/20/21 History Allergies Allergy/AdvReac Type Severity Reaction Status Date / Time lisinopril AdvReac Cough Verified 07/20/21 18:32 Physical Exam Vitals: Vital Signs Temp Pulse Pulse Resp BP BP Pulse Ox 07/21/21 08:00 79 16 07/21/21 07:00 97.7 F 79 16 145/79 93 L 07/21/21 02:47 98.0 F 75 16 148/76 100 07/21/21 00:28 75 18 07/20/21 20:35 97.5 F L 75 18 159/94 97 07/20/21 20:00 72 18 151/89 98 07/20/21 17:43 98.1 F 77 18 187/98 96 07/20/21 16:37 97.8 F 85 18 176/93 96 Intake and Output 07/20/21 07/21/21 07/21/21 22:59 06:59 14:59 Other: Voiding Method Toilet Toilet # Voids 1 1 Weight 77.111 kg Results 07/20/21 18:09 07/20/21 18:09 Cardiac Enzymes 07/20/21 07/20/21 07/21/21 Range/Units 18:09 18:09 00:50 AST 33 (14-36) U/L Troponin I <0.012 <0.012 (0.000-0.034) ng/mL Coagulation 07/20/21 Range/Units 18:09 PT 10.4 (9.0-12.0) sec APTT 22.6 (22.0-30.0) sec CBC 07/20/21 Range/Units 18:09 WBC 7.4 (3.8-10.6) k/uL RBC 4.94 (3.80-5.40) m/uL Hgb 14.4 (11.4-16.0) gm/dL Hct 42.5 (34.0-46.0) % Plt Count 247 (150-450) k/uL Comprehensive Metabolic Panel 07/20/21 Range/Units 18:09 Sodium 136 L (137-145) mmol/L Potassium 4.1 (3.5-5.1) mmol/L Chloride 104 (98-107) mmol/L Carbon Dioxide 23 (22-30) mmol/L BUN 17 (7-17) mg/dL Creatinine 0.62 (0.52-1.04) mg/dL Glucose 254 H (74-99) mg/dL Calcium 9.2 (8.4-10.2) mg/dL AST 33 (14-36) U/L ALT 36 H (4-34) U/L Alkaline Phosphatase 82 (38-126) U/L Total Protein 6.9 (6.3-8.2) g/dL Albumin 4.0 (3.5-5.0) g/dL Current Medications Generic Name Dose Route Start Last Admin Trade Name Freq PRN Reason Stop Dose Admin Acetaminophen 650 mg 07/20/21 19:31 07/20/21 22:37 Acetaminophen Tab 325 Mg Tab PO 650 mg Q6HR PRN Administration Mild Pain or Fever > 100.5 Alprazolam 0.25 mg 07/20/21 19:33 07/20/21 22:37 Alprazolam 0.25 Mg Tab PO 0.25 mg DAILY PRN Administration Anxiety Atorvastatin Calcium 80 mg 07/21/21 09:00 07/21/21 08:04 Atorvastatin 80 Mg Tab PO 80 mg DAILY JOSH Administration Heparin Sodium (Porcine) 5,000 unit 07/21/21 00:00 07/21/21 08:04 Heparin Sodium,Porcine/Pf 5,000 Unit/0.5 Ml Syringe SQ Not Given Q8HR [facility] Sodium Chloride 1,000 mls @ 75 mls/hr 07/20/21 19:45 07/20/21 20:06 Saline 0.9% IV 75 mls/hr .[id number] JOSH Administration Insulin Aspart 0 unit 07/21/21 07:30 07/21/21 08:06 Insulin Aspart (Novolog) 100 Unit/Ml Vial SQ Not Given ACHS [facility] Protocol Levothyroxine Sodium 112 mcg 07/21/21 06:30 07/21/21 05:39 Levothyroxine 112 Mcg Tab PO 112 mcg DAILY@0630 [facility] Administration Metoprolol Succinate 100 mg 07/21/21 09:00 Metoprolol Succinate (Er) 100 Mg Tab.Er.24h PO DAILY [facility] Naloxone HCl 0.2 mg 07/20/21 19:31 Naloxone 0.4 Mg/Ml 1 Ml Vial IV Q2M PRN Opioid Reversal Liraglutide [Victoza 1.2 mg 07/21/21 09:00 2-Gen] 0.6 Mg/0.1 SQ Ml Ml DAILY JOSH Pantoprazole Sodium 40 mg 07/21/21 09:00 07/21/21 08:04 Pantoprazole 40 Mg Tablet PO 40 mg DAILY JOSH Administration Trazodone HCl 100 mg 07/20/21 23:15 07/20/21 23:23 Trazodone Hcl 100 Mg Tab PO 100 mg HS JOSH Administration Venlafaxine HCl 75 mg 07/21/21 09:00 07/21/21 08:04 Venlafaxine Hcl Er 75 Mg Cap PO 75 mg DAILY JOSH Administration Intake and Output 07/20/21 07/21/21 07/21/21 22:59 06:59 14:59 Other: Voiding Method Toilet Toilet # Voids 1 1 Weight 77.111 kg 07/20/21 18:09 07/20/21 18:09
[2021-07-21] MEDS ORDERED: ASPIRIN 81 MG PO SCH (11:30)
[2021-07-21 11:42] LABS: Glucose,Whole Blood 223 mg/dL (75-99)
[2021-07-21 13:35] VITALS: BP 149/82; PULSE 81; TEMP 97.6
[2021-07-21] MEDS: SODIUM CHLORIDE 0.9% 1,000 ML IV SCH (14:33)
--- NOTE | 2021-07-21 15:19 | P.DS ---
Providers Date of admission: 07/20/21 19:31 Expected date of discharge: 07/21/21 Attending physician: Stephane Barbour MD Consults: 07/20/21 19:32 Consult Physician Routine Consulting Provider: Arianna Tsang Consult Reason/Comments: CP Do you want consulting provider notified?: Yes Primary care physician: [facility] Course: Atypical chest pain rule out ACS Headaches Diabetes mellitus Hypertension Hyperlipidemia 60 year old female with DM , hypertension , hyperlipidemia presented with 1 week history of occasional chest pain episodes. In the ED, Brain ct was negative, CXR no acute changes, trops negative and remained so. EKG non specific ST changes. Cardiology consulted on and cleared the patient for discharge. Her echo was c ompleted but not read by the time of patient's discharge. No medications were changed upon discharge. Pt will f/u with PCP. Gen: awake, alert HEENT: normocephalic, atraumatic, good hearing acuity, moist mucous membranes Resp: good air exchange, breathing comfortably with no accessory muscle use CVS: good distal perfusion x 4, GI: soft, NTTP, ND : no SPT, no CVAT, cao catheter not present MSK: no pitting edema, no clubbing Neuro: non-focal, moving all extremities Psych: cooperative, euthymic mood Patient Condition at Discharge: Good Plan - Discharge Summary Discharge Rx Participant: No New Discharge Prescriptions: Continue Omeprazole [PriLOSEC] 20 mg PO DAILY traZODone HCL [Desyrel] 100 mg PO HS Metoprolol Succinate (ER) [Toprol XL] 100 mg PO DAILY Empagliflozin [Jardiance] 10 mg PO DAILY glipiZIDE XL [Glucotrol XL] 10 mg PO DAILY ALPRAZolam [Xanax] 0.25 mg PO DAILY PRN PRN Reason: Anxiety Liraglutide [Victoza 2-Gen] 1.2 mg SQ DAILY Ergocalciferol [Vitamin D2 (1250 Mcg = 50166 Iu)] 1,250 mcg PO FR Venlafaxine HCl [Effexor XR] 75 mg PO DAILY Rosuvastatin Calcium [Crestor] 40 mg PO DAILY sitaGLIPtin [Januvia] 100 mg PO DAILY Levothyroxine Sodium 112 mcg PO DAILY Fenofibrate,Micronized [Fenofibrate] 134 mg PO DAILY Discharge Medication List Omeprazole [PriLOSEC] 20 mg PO DAILY 03/01/15 [History] ALPRAZolam [Xanax] 0.25 mg PO DAILY PRN 07/20/21 [History] Empagliflozin [Jardiance] 10 mg PO DAILY 07/20/21 [History] Ergocalciferol [Vitamin D2 (1250 Mcg = 49226 Iu)] 1,250 mcg PO FR 07/20/21 [History] Fenofibrate,Micronized [Fenofibrate] 134 mg PO DAILY 07/20/21 [History] Levothyroxine Sodium 112 mcg PO DAILY 07/20/21 [History] Liraglutide [Victoza 2-Gen] 1.2 mg SQ DAILY 07/20/21 [History] Metoprolol Succinate (ER) [Toprol XL] 100 mg PO DAILY 07/20/21 [History] Rosuvastatin Calcium [Crestor] 40 mg PO DAILY 07/20/21 [History] Venlafaxine HCl [Effexor XR] 75 mg PO DAILY 07/20/21 [History] glipiZIDE XL [Glucotrol XL] 10 mg PO DAILY 07/20/21 [History] sitaGLIPtin [Januvia] 100 mg PO DAILY 07/20/21 [History] traZODone HCL [Desyrel] 100 mg PO HS 07/20/21 [History] Follow up Appointment(s)/Referral(s): Damien iLu MD [Primary Care Provider] - 1-2 days Discharge Disposition: HOME SELF-CARE
--- NOTE | 2021-07-26 07:02 | ECHOF ---
Referral Reason:chest pain MEASUREMENTS -------- HEIGHT: 157.5 cm WEIGHT: 77.1 kg BP: Ao Diam: 3.4 cm (2.0 - 3.7) AV Cusp: 2.2 cm (1.5 - 2.6) LA Diam: 5.0 cm (2.7 - 3.8) MV EXCURSION: 13.838 mm (> 18.000) MV EF SLOPE: 59 mm/s (70 - 150) EPSS: 0.8 cm MV E Abhinav: 0.44 m/s MV DecT: 190 ms MV A Abhinva: 0.57 m/s MV E/A Ratio: 0.77 FINDINGS -------- There is normal global left ventricular contractility. Overall left ventricular systolic function i s normal with, an EF between 55 - 60 %. CONCLUSIONS -------- 1. There is normal global left ventricular contractility. ADULT HEALTH CLINICAL NURSE SPECIALIST: Christiana Yarbrough RDCS
== END 2021-07-21 16:20 | disposition home or self-care (01) ==
LOC: EC 16:33 → 6NMEDSUR 19:31
PROVIDERS: ADMIT Internal Medicine; ATTEND Internal Medicine
DX: R07.89 Other chest pain (principal); R51.9 Headache, unspecified; E11.9 Type 2 diabetes mellitus without complications; I10 Essential (primary) hypertension; E78.5 Hyperlipidemia, unspecified; E86.0 Dehydration; M25.519 Pain in unspecified shoulder; R94.31 Abnormal electrocardiogram [ECG] [EKG]; K21.9 Gastro-esophageal reflux disease without esophagitis; K42.9 Umbilical hernia without obstruction or gangrene; K44.9 Diaphragmatic hernia without obstruction or gangrene; E66.9 Obesity, unspecified; Z68.31 Body mass index [BMI] 31.0-31.9, adult; Z79.84 Long term (current) use of oral hypoglycemic drugs; Z79.890 Hormone replacement therapy; Z79.899 Other long term (current) drug therapy; Z88.8 Allergy status to other drugs, medicaments and biological substances; Z90.49 Acquired absence of other specified parts of digestive tract; Z98.51 Tubal ligation status; Z80.3 Family history of malignant neoplasm of breast; Z82.49 Family history of ischemic heart disease and other diseases of the circulatory system
CPT/HCPCS: 99285; 36415; 93005; 83880; 80053; 83690; 83735; 84484 ×2; 85025; 85610; 85730; 71046; 70450; G0378 ×2; C8929; Q9950; 93306

== ENCOUNTER → 2021-10-18 | Outpatient (CLI) | payer MEDICARE, OTHER ==
--- NOTE | 2021-10-20 12:25 | MM ---
Reason for Exam: Screening (asymptomatic). Last mammogram was performed 1 year(s) and 2 month(s) ago. Patient History: Menarche at age 13. First Full-Term at age 26. Postmenopausal. Mother had breast cancer, age 72. Risk Values: Viola 5 year model risk: 2.9%. NCI Lifetime model risk: 13.5%. Prior Study Comparison: 05/20/2018 Bilateral Screening Mammogram, [facility]. 07/16/2019 Bilateral Screening Mammogram, [facility]. 09/01/2020 Bilateral Screening Mammogram, [facility]. Tissue Density: There are scattered fibroglandular densities. Findings: Analyzed By CAD. Chronic nodularity on both sides. No significant change from prior exams. Overall Assessment: Benign, BI-RAD 2 Management: Screening Mammogram of both breasts in 1 year. 1. Patient should continue monthly self breast exams. 2. A clinical breast exam by your physician is recommended on an annual basis and results should be correlated with mammographic findings. A negative mammogram should not preclude additional follow-up of suspicious palpable abnormalities. Electronically signed and approved by: Stefani Roblero M.D. Radiologist
== END | disposition home or self-care (01) ==
LOC: RADMAMWWP 14:40
PROVIDERS: ATTEND Pediatrics
DX: Z12.31 Encounter for screening mammogram for malignant neoplasm of breast (principal); Z78.0 Asymptomatic menopausal state; Z80.3 Family history of malignant neoplasm of breast
CPT/HCPCS: 77063; 77067

== ENCOUNTER → 2023-01-14 | Outpatient (CLI) | payer MEDICARE, OTHER ==
--- NOTE | 2023-01-14 20:36 | XR ---
EXAMINATION TYPE: XR chest 2V DATE OF EXAM: 01/14/2023 COMPARISON: 07/20/2021 HISTORY: 62 year-old female R63.4 TECHNIQUE: Frontal and lateral views FINDINGS: The heart is upper limits of normal in size. Aorta and pulmonary vasculature within normal limits. No consolidation or pleural effusion. [facility] throughout the mid and lower thoracic spine. IMPRESSION: Borderline heart size. DISH throughout the mid and lower thoracic spine. No acute process seen.
--- NOTE | 2023-01-15 15:51 | MM ---
Reason for Exam: Screening (asymptomatic). Last mammogram was performed 1 year(s) and 3 month(s) ago. Patient History: Menarche at age 13. First Full-Term at age 26. Postmenopausal. Mother had breast cancer, age 72. Risk Values: Viola 5 year model risk: 3.0%. NCI Lifetime model risk: 13.2%. Prior Study Comparison: 07/16/2019 Bilateral Screening Mammogram, [facility]. 09/01/2020 Bilateral Screening Mammogram, [facility]. 10/18/2021 Bilateral MG 3D screening mammo w/cad, [facility]. Tissue Density: The breast tissue is heterogeneously dense. This may lower the sensitivity of mammography. Findings: Analyzed By CAD. Pattern appears symmetrical and stable. Stable nodularities within the right breast. No suspicious groups of microcalcifications, spiculated or lobular masses, architectural distortion or other secondary signs of malignancy are mammographically apparent. Overall Assessment: Benign, BI-RAD 2 Management: Screening Mammogram of both breasts in 1 year. A negative mammogram report should not preclude additional follow up of suspicious palpable abnormalities. Patient should continue monthly self breast exam. A clinical breast exam by your physician is recommended on an annual basis and results should be correlated with mammographic findings. Electronically signed and approved by: Reese Matthew D.O. Radiologis
== END | disposition home or self-care (01) ==
LOC: RADMAMWWP 12:47
PROVIDERS: ATTEND Pediatrics
DX: Z12.31 Encounter for screening mammogram for malignant neoplasm of breast (principal); R63.4 Abnormal weight loss; Z78.0 Asymptomatic menopausal state; Z80.3 Family history of malignant neoplasm of breast
CPT/HCPCS: 71046; 77063; 77067

== ENCOUNTER → 2024-06-30 | Outpatient (CLI) | payer MEDICARE, OTHER ==
[2024-06-30 13:52] VITALS: BP 169/93; PULSE 69; RESP 18; TEMP 97.7
--- NOTE | 2024-06-30 14:34 | P.SLEEP ---
History of Present Illness DATE: 06/30/2024 CONSULTATION/NEW PATIENT EVALUATION HISTORY OF PRESENT ILLNESS/SLEEP-WAKE EVALUATION: 63-year-old lady had been e valuated in the sleep center for possible obstructive sleep apnea hypopnea syndrome. SLEEP SCHEDULE: Usually sleep schedule from midnight until 11 AM. FALLING ASLEEP: Patient does have problems with falling asleep, although no TV in bedroom. DURING SLEEP: Patient snores and wakes up from sleep 4 times with nocturia. Positive history of witnessed episodes of stop breathing during the sleep in the past. Positive history awakenings from sleep with dry mouth and restless legs. No history of hypnogogical hallucinations, sleep paralysis, or cataplexy. DURING THE DAY/WAKE STATE: In the morning patient wake up tired, has problems with memory, depression, claustrophobia. Bath sleepiness scale is significantly increased to 14. Usually patient does not take naps. PAST MEDICAL HISTORY: Hypertension, coronary artery disease, hyperlipidemia, acid reflux, diabetes mellitus, hypothyroidism. PAST SURGICAL HISTORY: Cholecystectomy, bladder suspension. MEDICATIONS: Metoprolol, loperamide, Prilosec, Januvia, trazodone, oxybutynin, famotidine, Synthroid, rosuvastatin, glipizide, fenofibrate. SOCIAL HISTORY: Please see below. FAMILY HISTORY: Please see below. REVIEW OF SYSTEMS: Snoring, multiple awakenings from sleep, sleepiness during the day. No fevers. No double vision. No recent chest pain. No shortness of breath. No abdominal pain. No bleeding episodes. No blood in urine. No seizure episodes. PHYSICAL EXAMINATION: GENERAL: A pleasant patient without any distress. VITAL SIGNS: Please see below, weight 207 pounds, BMI 39.3. HEENT: PERRLA, EOMI. Evaluation of oropharynx showed tongue protrudes midline, low position of soft palate Mallampati 4. NECK: Supple. No JVD. Thyroid is not palpable. 18 inches in circumference. LUNGS: Clear to percussion and to auscultation. Good air exchange. No wheezing or rhonchi. HEART: S1, S2 regular. No murmurs, gallops or rubs. ABDOMEN: Soft and nontender. Bowel sounds are present. No organomegaly appreciated. Obese EXTREMITIES: No clubbing or cyanosis. CONTACT CENTER MANAGER: Awake, alert, and oriented x3. Cranial nerves 2 to 7 intact. There is no fasciculation or atrophy noted. No focal deficits observed. ASSESSMENT: 1. Snoring, multiple awakenings from sleep, extremely low position of soft palate Mallampati 4, wide neck 18 inches in circumference, sleepiness with Bath Sleepiness Scale 14. Obstructive sleep apnea hypopnea syndrome. 2. Obesity, BMI 39.3. 3. Hypertension. 4. History of coronary artery disease. 5 hyperlipidemia. 6 . Diabetes mellitus. 7. Acid reflux. 8. Hypothyroidism. 9 . Status post cholecystectomy. 10. Status post bladder suspension. PLAN: 1. Polysomnography for evaluation of patient's breathing during sleep. 2. Following plan after reading sleep study. 3. Preferable position during sleep on the side. 4. No driving if patient feels any sleepiness. Patient is aware of civil and criminal liability for unsafe driving. 5. Sleep hygiene with regular sleep time for at least 7.5-8 hours. 6. Watching and losing weight. Thank you very much for referring this patient for consultation. Sincerely, Jorge Argueta MD, PhD, FAASM. Diplomat of [place] [employer], Sleep Medicine Board by [place] [employer] [place] [employer] [facility] [place] cc: Damien Liu MD Past Medical History Past Medical History: COPD, Diabetes Mellitus, GERD/Reflux, Hyperlipidemia, Hypertension, Thyroid Disorder Additional Past Medical History / Comment(s): HIATAL HERNIA,UMBILICAL HERNIA, 06/30/24 pt states diagnosed with emphysema (second hand smoke) and enlarged heart about 3 months ago. Angina, arthritis, weakness when gets excited, bronchitis, snoring, insomnia History of Any Multi-Drug Resistant Organisms: None Reported Past Surgical History: Cholecystectomy, Tubal Ligation Additional Past Surgical History / Comment(s): EGD,BLADDER SUSPENSION, COLONOSCOPY Past Anesthesia/Blood Transfusion Reactions: No Reported Reaction Past Psychological History: Depression Smoking Status: Never smoker Past Alcohol Use History: Occasional Past Drug Use History: None Reported - Past Family History Mother Family Medical History: Cancer, Deep Vein Thrombosis (DVT), Myocardial Infarction ([place]), Pneumonia Additional Family Medical History / Comment(s): BREAST CA, MOM PASSED IN HER SLEEP (POSSIBLE HEART ATTACK THEY THINK) (DUAGHER HX = ANEMIA, MENTAL ILLNESS (BIPOLAR/PTSD, BORDERLINE?), Father Family Medical History: Myocardial Infarction ([place]) Medications and Allergies Home Medications Medication Instructions Recorded Confirmed Type Omeprazole [PriLOSEC] 20 mg PO DAILY 03/01/15 07/20/21 History ALPRAZolam [Xanax] 0.25 mg PO DAILY PRN 07/20/21 07/20/21 History Empagliflozin [Jardiance] 10 mg PO DAILY 07/20/21 07/20/21 History Ergocalciferol [Vitamin D2 (1250 1,250 mcg PO FR 07/20/21 07/20/21 History Mcg = 36142 Iu)] Fenofibrate,Micronized 134 mg PO DAILY 07/20/21 07/20/21 History [Fenofibrate] Levothyroxine Sodium 112 mcg PO DAILY 07/20/21 07/20/21 History Liraglutide [Victoza 2-Gen] 1.2 mg SQ DAILY 07/20/21 07/20/21 History Metoprolol Succinate (ER) [Toprol 100 mg PO DAILY 07/20/21 07/20/21 History XL] Rosuvastatin Calcium [Crestor] 40 mg PO DAILY 07/20/21 07/20/21 History Venlafaxine HCl [Effexor XR] 75 mg PO DAILY 07/20/21 07/20/21 History glipiZIDE XL [Glucotrol XL] 10 mg PO DAILY 07/20/21 07/20/21 History sitaGLIPtin [Januvia] 100 mg PO DAILY 07/20/21 07/20/21 History traZODone HCL [Desyrel] 100 mg PO HS 07/20/21 07/20/21 History Allergies Allergy/AdvReac Type Severity Reaction Status Date / Time lisinopril AdvReac Cough Verified 07/20/21 18:32 Physical Exam Vitals: Vital Signs Temp Pulse Resp BP Pulse Ox 06/30/24 13:48 97.7 F 69 18 169/93 94 L Intake and Output 06/29/24 06/30/24 06/30/24 22:59 06:59 14:59 Other: Weight 94.12 kg Sleep Note - Sleep Data ESS Total: 14 - Sleep Note Sleep Note: Temperature: 97.7 F Pulse Rate: 69 Respiratory Rate: 18 Blood Pressure: 169/93 SpO2: 94 Height: 5 ft 1 in Weight: 94.12 kg BMI: Neck Circumference: 18
== END ==
LOC: 3 N SLEEP 13:10
PROVIDERS: ATTEND Internal Medicine
DX: G47.33 Obstructive sleep apnea (adult) (pediatric) (principal); I10 Essential (primary) hypertension; E66.9 Obesity, unspecified; E78.5 Hyperlipidemia, unspecified; E11.9 Type 2 diabetes mellitus without complications; E03.9 Hypothyroidism, unspecified; K21.9 Gastro-esophageal reflux disease without esophagitis; Z86.79 Personal history of other diseases of the circulatory system; Z90.49 Acquired absence of other specified parts of digestive tract; Z88.8 Allergy status to other drugs, medicaments and biological substances
CPT/HCPCS: 99211

== ENCOUNTER 2024-07-28 19:33 | Outpatient (CLI) | payer MEDICARE, OTHER ==
--- NOTE | 2024-08-04 12:30 | P.PCN ---
Description of Procedure: POLYSOMNOGRAPHY REPORT PROCEDURE(S)/DATE(S): Polysomnography 07/28/2024 CLINICAL: Patient has been seen in the sleep center for evaluation of obstructive sleep apnea-hypopnea syndrome. Please see my consultation. Sleep study has been done for evaluation of patient breathing during the sleep. PROCEDURE: The standard montage for clinical polysomnography included the electroencephalogram, the electrooculogram, the mentalis surface electromyography and Lead II cardiography. The respiratory battery consisted of measurements of nasal/buccal air flow, pressure transducer measurements from nose, thoracic and/or abdominal effort and intercostal surface electromyography. Video monitoring has been done to check for any parasomnia events. Nocturnal oxyhemoglobin saturations were obtained by finger oximetry. Step-espinal titration with positive airway pressure was utilized to control the respiratory events, if necessary. RESULTS: During the diagnostic sleep study sleep efficiency was decreased to 79.2%. Latency to sleep onset was significantly prolonged to 72.5 min. Sleep architecture showed stage NI was extremely short 0.8%, Delta sleep was short 2.1%, REM sleep was extremely short 5.4%. Respiratory channel showed 2 obstructive apneas, 1 mixed apneas, 2 central apneas, 20 hypopneas with lowest oxygen level 86%. Total apnea hypopnea index was 4.2. Heart rate was in the range between 63 and 100, average 76 bpm. EMG showed 5.9 periodic limb movements per hour with 0.3 micro-arousals per hour. IMPRESSIONS: 1. No significant respiratory abnormalities have been documented during the sleep. 2. No significant periodic limb movements have been documented. 3. Prolonged sleep latency with history of difficulties to initiate sleep most probably indicate insomnia/first night adaptation response. 4. Sleepiness during the day, [place] Sleepiness Scale during consultation increased to 14. Please see other impressions from consultation PLAN: 1. I will see patient for follow-up visit to discuss results of the test and recommendations. 2. Losing weight program. 3. Sleep hygiene with regular time in bed for at least 7-1/2 hours. 4. No driving if feeling sleepiness. Thank you very much for allowing me to participate in the management of your patient. Sincerely, Jorge Argueta MD, PhD, FAASM. Diplomat of [place] [employer], Sleep Medicine Board by [place] [employer] [facility] [place] cc: Damien Liu MD
== END 2024-07-29 05:10 | disposition home or self-care (01) ==
LOC: 3 N SLEEP 19:33
PROVIDERS: ATTEND Internal Medicine
DX: G47.33 Obstructive sleep apnea (adult) (pediatric) (principal); Z88.8 Allergy status to other drugs, medicaments and biological substances
CPT/HCPCS: 95810

== ENCOUNTER → 2024-09-13 | Outpatient (CLI) | payer MEDICARE, OTHER ==
[2024-09-13 13:18] VITALS: BP 148/78; PULSE 78; RESP 16; TEMP 97.9
--- NOTE | 2024-09-13 13:55 | P.PROGSL ---
Subjective DATE: 09/13/2024 FOLLOW UP VISIT. Patient returned to sleep center for follow-up visit to discuss with patient results of sleep study. I discussed results of polysomnogram with patient in details. No significant respiratory abnormalities have been documented, total apnea hypopnea index was 4.2. No significant periodic limb movements have been documented. During the test patient had prolonged sleep latency and decreased sleep efficiency. Patient continued to have some sleepiness during the day. Presently with usage of trazodone at bedtime patient improved with relationship to difficulties with falling asleep. [place] sleepiness scale is increased to 13. MEDICATIONS: Please see below During physical exam: GENERAL: A pleasant patient without any distress. VITAL SIGNS: Please see below, weight 196 pounds, BMI 37.0. HEENT: PERRLA, EOMI. NECK: Supple. No JVD. LUNGS: Clear to percussion and to auscultation. Good air exchange. No wheezing or rhonchi. HEART: S1, S2 regular. ABDOMEN: Soft and nontender. EXTREMITIES: No clubbing or cyanosis. PROTECTION SPECIALIST: Awake, alert, and oriented x3. No focal deficit. Impressions: 1. No significant respiratory abnormalities have been documented during the sleep study 2. No periodic limb movements. 3. Prolonged sleep latency during sleep study and slightly low sleep efficiency which could be secondary to insomnia or first night adaptation response. Presently patient is on treatment with trazodone at bedtime and falling asleep without significant problems. 4. Hypertension. 5. Coronary artery disease. 6. Hyperlipidemia. 7. Acid reflux. 8. Diabetes mellitus. 9. Hypothyroidism. 10 status post bladder suspension 11. Status post cholecystectomy Plan: 1. I discussed with patient possibility to proceed with multiple sleep latency test for objective evaluation symptoms of excessive daytime sleepiness, but patient think that at the present time she will not be able to fall asleep quickly on several naps, so probably testing at the present time is not necessary. 2. Sleep hygiene with regular time in bed for at least 8 hours. 3. Precautions related to driving. No driving if feel any sleepiness. Patient is aware about civil and criminal liability for unsafe driving, promised to follow recommendations. 4. Follow up visit in 12 months or earlier if patient has any problems. Thank you very much for allowing me to participate in the management of your patient. Jorge Argueta MD, PhD, FAASM. Diplomat of [place] [employer] Medicine, Sleep Medicine Board by [place] [employer] Medicine Supervisor [employer] [facility] [place] Objective - Vital Signs Vital Signs: Vital Signs Temp 97.9 F 09/13/24 13:16 Pulse 78 09/13/24 13:16 Resp 16 09/13/24 13:16 BP 148/78 09/13/24 13:16 Pulse Ox 96 09/13/24 13:16 FiO2 Intake & Output 09/12/24 09/13/24 09/13/24 18:59 06:59 18:59 Weight 88.904 kg Home Medications: Home Medications Medication Instructions Recorded Confirmed Type Omeprazole [PriLOSEC] 20 mg PO DAILY 03/01/15 07/20/21 History ALPRAZolam [Xanax] 0.25 mg PO DAILY PRN 07/20/21 07/20/21 History Empagliflozin [Jardiance] 10 mg PO DAILY 07/20/21 07/20/21 History Ergocalciferol [Vitamin D2 (1250 1,250 mcg PO FR 07/20/21 07/20/21 History Mcg = 95860 Iu)] Fenofibrate,Micronized 134 mg PO DAILY 07/20/21 07/20/21 History [Fenofibrate] Levothyroxine Sodium 112 mcg PO DAILY 07/20/21 07/20/21 History Liraglutide [Victoza 2-Gen] 1.2 mg SQ DAILY 07/20/21 07/20/21 History Metoprolol Succinate (ER) [Toprol 100 mg PO DAILY 07/20/21 07/20/21 History XL] Rosuvastatin Calcium [Crestor] 40 mg PO DAILY 07/20/21 07/20/21 History Venlafaxine HCl [Effexor XR] 75 mg PO DAILY 07/20/21 07/20/21 History glipiZIDE XL [Glucotrol XL] 10 mg PO DAILY 07/20/21 07/20/21 History sitaGLIPtin [Januvia] 100 mg PO DAILY 07/20/21 07/20/21 History traZODone HCL [Desyrel] 100 mg PO HS 07/20/21 07/20/21 History
== END ==
LOC: 3 N SLEEP 13:05
PROVIDERS: ATTEND Internal Medicine
DX: G47.00 Insomnia, unspecified (principal); I10 Essential (primary) hypertension; I25.10 Atherosclerotic heart disease of native coronary artery without angina pectoris; E78.5 Hyperlipidemia, unspecified; K21.9 Gastro-esophageal reflux disease without esophagitis; E11.9 Type 2 diabetes mellitus without complications; E03.9 Hypothyroidism, unspecified; Z98.890 Other specified postprocedural states; Z90.49 Acquired absence of other specified parts of digestive tract; Z88.8 Allergy status to other drugs, medicaments and biological substances
CPT/HCPCS: 99212